=== PATIENT | male | born 1975 | race Caucasian/White ===

== ENCOUNTER 2019-02-15 13:35 | Emergency (ER) | payer OTHER, SELFPAY ==
[2019-02-15 13:35] VITALS: BP 158/98; PULSE 84; RESP 18; TEMP 36.5; O2SAT 99
[2019-02-15 13:36] VITALS: BP 158/98; PULSE 81; RESP 18; TEMP 36.5; O2SAT 99; BMI 48.9
--- NOTE | 2019-02-15 13:49 | CT_ITS ---
STUDY: CT BRAIN WITHOUT CONTRAST REASON FOR EXAM: Male, 43 years old. Dizziness and anxiety. RADIATION DOSAGE (If Supplied By Facility): CTDIvol = ( 44.99 ) mGy, DLP = ( 796.11 ) mGycm TECHNIQUE: Transaxial CT imaging of the brain was performed without administration of intravenous contrast material. Individualized dose optimization techniques were used for this CT. COMPARISON: No relevant priors. FINDINGS: Normal soft tissue structures. Normal calvarium. Normal size ventricles and extra-axial spaces for the patient's age. Normal white matter tracts of the cerebral hemispheres. Normal basal ganglia and thalami. Normal brainstem. Normal cerebellum. There is no intracranial hemorrhage. There are no findings of an acute ischemic infarction. Normal visualized paranasal sinuses. CT/Brain/Head without Contrast IMPRESSION: Normal unenhanced CT scan of the brain. Electronically Signed: Lauri Diallo, at 15:14 EDT , Service support ,
--- NOTE | 2019-02-15 13:49 | RAD_ITS ---
STUDY: X-RAY CHEST REASON FOR EXAM: Male, 43 years old. Chest pressure. Dizziness. TECHNIQUE: Single AP portable view of the chest. COMPARISON: None. FINDINGS: EKG electrodes are seen. The lungs are clear and expanded. There is no demonstrated pleural abnormality. Normal size heart. Normal mediastinum and vicente. Normal visualized pulmonary arteries. Normal visualized aortic arch and descending thoracic aorta. Normal visualized thoracic spine. Normal visualized ribs, clavicles, and shoulders. There is no demonstrated abnormality of the visualized soft tissue structures of the upper abdomen. RAD/Chest 1 View (Portable) IMPRESSION: Normal x-ray examination of the chest. Electronically Signed: Lauri Diallo, at 14:26 EDT , Service support ,
--- NOTE | 2019-02-15 13:49 | EKG12_ITS ---
Test Reason : SOB Blood Pressure : / mmHG Vent. Rate : 076 BPM Atrial Rate : 076 BPM P-R Int : 194 ms QRS Dur : 096 ms QT Int : 362 ms P-R-T Axes : 030 -17 022 degrees QTc Int : 407 ms Normal sinus rhythm Normal ECG Confirmed by SERENA LEE, PATIENCE ([id number]), newspaper copy editor HARMEET ACE ([id number]) on 02/19/2019 3:34:01 PM Referred By: DC Confirmed By:PATINECE LYONS MD
[2019-02-15] MEDS: 0.9% Normal Saline 1,000 ML 1000 ML IV ×2 (14:23→15:47)
[2019-02-15 14:25] LABS: Absolute Lymphocyte Count 3.49 X10^3/uL (0.83-4.51); Absolute Neutrophil Count 4.3 X10^3/uL (2.0-7.7); Basophil# 0.07 X10^3/uL; Basophil% 0.8 % (0-1); Eosinophil# 0.22 X10^3/uL; Eosinophils% 2.5 % (0-5); Hematocrit 45.2 % (40-54); Hemoglobin 14.9 g/dL (13.0-16.5); Lymphocyte # 3.49 X10^3/ul (4.0); Lymphocyte % 39.3 % (19-41); Mean Corpuscular Hgb 29.3 pg (27.0-32.0); Mean Platelet Vol. 9.7 fl (6.2-12.0); NRBC Flagged by Analyzer 0 % (0-5); Neutrophil # 4.25 X10^3/uL (2.7-7.7); Neutrophil % 47.7 % (47-70); Platelet Count 256 K/mm3 (150-450); RBC Distribution Width CV 12.2 % (11.6-14.6); RBC Distribution Width SD 40.4 fl (35.1-43.9); Red Blood Count 5.08 M/mm3 (4.6-6.2); White Blood Count 8.9 K/mm3 (4.4-11.0)
[2019-02-15] MEDS: Ondansetron 4 MG/2 ML Vial IV (14:41)
[2019-02-15 14:49] LABS: Anion Gap 3 (5-15); BUN 18 mg/dL (7-18); Calcium,Total 9.4 mg/dL (8.5-10.1); Chloride 107 mmol/L (98-107); Creatinine, Serum 0.86 mg/dL (0.70-1.30); EST Glomerular Filtration Rate 104 mL/min (>60); Est Glom Filt Rate - Afr Amer 126 mL/min (>60); Estimated Creatinine Clearance 104.62 ml/min; Glucose 122 mg/dL (74-106); Potassium 3.8 mmol/L (3.5-5.1); Sodium Level 139 mmol/L (136-145); Thyroid Stim Hormone (TSH) 1.37 uIU/mL (0.358-3.74)
[2019-02-15 15:27] VITALS: BP 155/93; PULSE 77; RESP 19; O2SAT 98
--- NOTE | 2019-02-15 15:35 | ED.VISSUMM ---
- ER Visit Summary Date of Service: 02/15/19 Chief Complaint: Dizziness History of Present Illness: The patient is a 43 M with dizziness that started about 30 minutes prior to arrival. The episodes last about 30 seconds. He feels that his eyes cannot focus on things. His symptoms are worse when he moves his eyes. He feels hot and panicked, and he had some nausea. Patient had an episode like this in the past. He said it was really hot outside at that time, and he felt that he had gotten dehydrated. His symptoms lasted for about an hour and then he never had any further symptoms up until today. He denies any other neurologic symptoms like weakness or numbness. Denies speech changes or balance issues. He denies any fever or recent illness. Denies any hearing changes or ear symptoms. Denies trauma. He does report that he is being treated for ongoing dental pain. He is currently on Motrin and antibiotics. He has a planned dental extraction tomorrow for placement of dentures. Physical Examination: Afebrile and vital signs unremarkable except blood pressure 158/98. Patient is alert and oriented. No acute distress. Eye movements are normal. HEENT exam unremarkable. Heart regular. Lungs clear. Abdomen soft. Cranial nerves grossly intact. Normal strength and sensation. Normal cerebellar testing. Test Results: EKG showed sinus rhythm at a rate is 76. CBC, BMP, troponin, TSH unremarkable. Chest x-ray normal. CT brain normal. Patient was treated with IV fluids. On reevaluation, patient was feeling better. He has intermittent dizziness that lasts for less than a minute. Worse when moving his eyes. I suspect the patient has a peripheral vertigo. His work-up is reassuring. His symptoms including sudden onset, severe symptoms, short duration, positional change, and the lack of other associated neurologic symptoms favors peripheral vertigo. Patient declined admission. Declined further testing including MRI and MRA. I believe this is reasonable, but I told him that I cannot 100% rule out stroke. If he does have new or worsening issues, he should return right away. Will prescribe a course of meclizine. Follow-up with primary care as an outpatient. Emergency Department Course and Treatment: As above Treatment Plan: As above Disposition: Discharge Impression: 1. Vertigo This note was generated with [employer]ided [employer] software. It may contain incorrect words, spelling, and punctuation that were not noted in review of the chart prior to signing ED Disposition - Plan for ED Patient: Referrals: Care Physician,No Primary [Primary Care Provider] -
--- NOTE | 2019-02-15 15:39 | ED.DEP ---
ED Disposition - Plan for ED Patient: Instructions: VERTIGO, Unspecified Prescriptions: Meclizine HCl [Antivert] 25 mg PO TID PRN PRN #20 tab PRN Reason: Dizziness Prescription Printed Referrals: Mary Chavis [NON-STAFF] -
[2019-02-15] MEDS: Meclizine HCl 25 MG Tablet PO (15:48)
[2019-02-15 16:00] VITALS: BP 153/91; PULSE 65; RESP 16; O2SAT 97
[2019-02-15 16:31] VITALS: BP 153/91; PULSE 83; RESP 18; O2SAT 97
--- NOTE | 2019-02-15 16:33 | ED.RN ---
REVIEWED D/C INSTRUCTIONS, FOLLOW UP CARE, PRESCRIPTION, AND S/S THAT WOULD WARRANT A RETURN TO THE ED WITH PT. PT VERBALIZED AN UNDERSTANDING AND DENIES FURTHER QUESTIONS FOR THIS RN. PT SKIN P/W/D, RESP EVEN AND UNLABORED, PT A&O X 3, NO DISTRESS NOTED. PT AMBULATED OUT OF ED, GAIT STEADY.
== END 2019-02-15 16:34 | disposition home or self-care (01) ==
LOC: ED 14:08
PROVIDERS: Emergency Provider Emergency Medicine
DX: R42 Dizziness and giddiness (principal); E11.9 Type 2 diabetes mellitus without complications; R11.0 Nausea; K08.89 Other specified disorders of teeth and supporting structures; Z79.84 Long term (current) use of oral hypoglycemic drugs; Z79.899 Other long term (current) drug therapy
CPT/HCPCS: 70450; 71045; 80048; 84443; 84484; 85025; 93005; 96361; 96374; 99285; J7030; A4216; J2405